=== PATIENT | female | born 1945 | race Hispanic/Latino ===

== ENCOUNTER → 2018-05-05 | Outpatient (CLI) | payer MEDICARE | END | disposition home or self-care (01) | LOC: RAH 09:46 | DX: Z12.31 Encounter for screening mammogram for malignant neoplasm of breast (principal) | CPT/HCPCS: 77067 ==

== ENCOUNTER → 2021-06-30 | Outpatient (CLI) | payer MEDICARE | END | disposition home or self-care (01) | LOC: OIH 15:27 | PROVIDERS: ATTEND Internal Medicine | DX: I36.1 Nonrheumatic tricuspid (valve) insufficiency (principal); I11.9 Hypertensive heart disease without heart failure; E66.9 Obesity, unspecified; E78.5 Hyperlipidemia, unspecified | CPT/HCPCS: 93306; 93356 ==

== ENCOUNTER → 2024-01-28 | Outpatient (CLI) | payer OTHER, MEDICARE | END | disposition home or self-care (01) | LOC: SHCH 09:00 | PROVIDERS: ATTEND Internal Medicine | DX: I34.0 Nonrheumatic mitral (valve) insufficiency (principal); I34.81 Nonrheumatic mitral (valve) annulus calcification | CPT/HCPCS: 93306 ==

== ENCOUNTER → 2025-06-28 | Outpatient (CLI) | payer MEDICARE ==
[2025-06-28] MEDS: REGADENOSON 0.4 MG/5 ML PF SYG IVP ONE (08:43)
== END | disposition home or self-care (01) ==
LOC: RAH 07:05
PROVIDERS: ATTEND Internal Medicine
DX: I25.10 Atherosclerotic heart disease of native coronary artery without angina pectoris (principal)
CPT/HCPCS: 78452; 93017; J2785; A9500 ×2

== ENCOUNTER 2025-07-14 12:41 | Emergency (ER) | payer MEDICARE, MEDICAID ==
[~2025-07-14] VITALS: Ht 152.4 cm; Wt 95.7 kg
--- NOTE | 2025-07-14 13:09 | ERN ---
ED Note History of Present Illness Stated Complaint: SOB X2 MONTHS. REFERRED BY PCP. [facility] Chief Complaint: Shortness of Breath Time Seen by MD: 12:48 Dictation: Patient is a 79-year-old female with a past medical history for diabetes, hypertension, kidney disease, CAD who presented to the ER complaining of shortness breath x2 months. 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 Beto Allergies: Coded Allergies: No Known Drug Allergies (Verified Allergy, Unknown, 02/17/18) Home Meds Active Scripts Furosemide (Furosemide) 40 Mg Tablet, 1 TAB PO DAILY for 30 Days, #30 TAB 0 R efills Prov:ROGE WHITLEY MD 07/14/25 Past Medical History Past Medical History: Asthma, CHF, Diabetes-Type II, Hypertension, Renal Disese Additional Past Medical Hx: PVD, Surgical History: Cholecystectomy Review of System Dictation NEGATIVE EXCEPT PER HPI Constitutional: Negative for fever,chills, and weight loss Eyes: Negative for injury, pain,redness, and discharge ENT: Negative for injury,pain or swelling Cardiovascular: denies chest pain, palpitations, and edema Respiratory: Shortness of breath Abdomen/GI: Negative for abdominal pain, nausea, vomiting, diarrhea, and constipation Back: Negative for injury and pain : Negative for injury, bleeding and discharge MS/Extremity: Negative for injury and deformity Skin: Negative for rash, and discoloration Neuro: Negative for headache, weakness, numbness, tingling, and seizure Psych: Negative for suicide ideation, homicidal ideation, and hallucinations Initial Vital Sign VS Vital Signs Date Time Temp Pulse Resp B/P (MAP) Pulse Ox O2 Delivery O2 Flow Rate FiO2 07/14/25 12:43 97.0 84 16 134/61 97 0 07/14/25 16:45 Room Air* 21 Physical Exam Dictation General: awake, alert, NAD Head/Face: Normocephalic, atraumatic Eyes: PERRL, EOMI, vision at baseline ENT: oral cavity clear, TMs clear, no signs of infection Neck: Trachea midline, supple, no nuchal rigidity Cardiovascular: RRR, normal S1/S2, No MRGs, no JVD Respiratory: CTAB, no respiratory distress, No rales or wheezes Abdomen: Soft , no tender Skin: Warm, dry, normal turgor, no rash MS/Extremity: Pulses equal, no cyanosis, neurovascular intact, FROM bilateral lower extremity edema. Neuro: COAx4, GCS 15, strength 5/5, CN 2-12 intact, normal cerebellar exam, normal gait, Psych: Normal behavior, mood, and affect normal Results (Laboratory/Radiology) Laboratory/Radiology Laboratory Tests Test 07/14/25 13:12 White Blood Count 4.9 K/uL (4.8-10.8) Red Blood Count 2.98 MIL/uL (4.00-5.50) L Hemoglobin 9.3 g/dL (12.0-16.0) L Hematocrit 30.5 % (36-48) L Mean Corpuscular Volume 102.3 fL (79-99) H Mean Corpuscular Hemoglobin 31.2 pg (27.0-33.0) Mean Corpuscular Hemoglobin Concent 30.5 g/dL (32.0-36.0) L Red Cell Distribution Width 14.1 % (11.0-15.5) Platelet Count 205 K/uL (130-400) Mean Platelet Volume 10.0 fL (7.5-10.5) Nucleated Red Blood Cells 0.0 % (0.0-0.19) Red Blood Cell Morphology See comments Sodium Level 141 mmol/L (136-145) Potassium Level 4.6 mmol/L (3.5-5.1) Chloride Level 103 mmol/L (101-111) Carbon Dioxide Level 31 mmol/L (21-32) Blood Urea Nitrogen 30 mg/dL (7-18) H Creatinine 2.5 mg/dL (0.5-1.0) H Glomerular Filtration Rate Calc 19 mL/min (>90) Random Glucose 155 mg/dL (70-105) H Total Calcium 10.3 mg/dL (8.5-10.1) H B-Type Natriuretic Peptide 1010 pg/mL (0-100) H EKG Comment: Atrial fibrillation heart rate 80, QT 399 Negative for STEMI ED Course ED Course Orders Procedure Category Date Status Time Chest 1vw RAD 07/14/25 Resulted 12:50 B-Type Natriuretic LAB 07/14/25 Complete Peptide 13:04 Cbc Without LAB 07/14/25 Complete Differential 13:04 Basic Metabolic Panel LAB 07/14/25 Complete 13:04 12 Lead Ekg Tracing- EKG 07/14/25 Resulted Technical 13:04 Furosemide 40mg Vial PHA 07/14/25 Complete (Lasix 40mg Vial) 14:30 Current Medications Medications (Trade) Dose Ordered Sig/Mike Route PRN Reason Start Time Stop Time Status Last Admin Dose Admin Furosemide (LASix 40MG VIAL) 40 mg ONCE ONCE IV 07/14/25 14:30 07/14/25 14:31 DC 07/14/25 14:57 Vital Signs Date Time Temp Pulse Resp B/P (MAP) Pulse Ox O2 Delivery O2 Flow Rate FiO2 07/14/25 16:45 97.9 78 16 124/54 98 Room Air* 0 21 07/14/25 12:43 97.0 84 16 134/61 97 0 Medical Decision Making MDM 79-year-old female with a past medical history of kidney disease, CAD. Who presented with the shortness breath x 2 months CHF exacerbation Bilateral lower extremity edema Ordered laboratory workup, EKG, chest x-ray DX & DISP Disposition: Discharge Departure Impression: Primary Impression: CHF (congestive heart failure) Additional Impression: CKD (chronic kidney disease) Condition: Stable Scripts Furosemide (Furosemide) 40 Mg Tablet 1 TAB PO DAILY for 30 Days, #30 TAB 0 Refills Prov: ROGE WHITLEY MD 07/14/25 Additional Instructions: RETURN TO ER FOR ANY ACUTE OR WORSENING SYMPTOMS. FOLLOW-UP IN 1-2 DAYS WITH PRIMARY PROVIDER FOR RECHECK OF TODAY'S SYMPTOMS. Referrals: LUZMA EASTMAN (PCP) Time of Disposition: 16:19 ROGE WHITLEY MD Jul 14, 2025 13:09
--- NOTE | 2025-07-14 13:16 | EKG ---
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
[2025-07-14 13:24] LABS: NUCLEATED RED BLOOD CELLS 0.0 % (0.0-0.19); PLATELET COUNT (AUTO) 205 K/uL (130-400); RED BLOOD CELL COUNT(AUTO) 2.98 MIL/uL (4.00-5.50); RED CELL DISTRIBUTION WIDTH 14.1 % (11.0-15.5); WHITE BLOOD COUNT (AUTO) 4.9 K/uL (4.8-10.8)
[2025-07-14 13:30] LABS: CREATININE 2.5 mg/dL (0.5-1.0); GLOMERULAR FILTR. RATE CALC 19.0 mL/min (>90); GLUCOSE,RANDOM 155.0 mg/dL (70-105); SODIUM SERUM 141.0 mmol/L (136-145); UREA NITROGEN, BLOOD 30.0 mg/dL (7-18)
--- NOTE | 2025-07-14 14:35 | HMCIMG ---
EXAM: CR Chest, 1 View. CLINICAL HISTORY: sOB, r/o pneumonia COMPARISON: None provided. FINDINGS: LUNGS: There is no mass, infiltrate, or acute pulmonary abnormality. PLEURAL SPACES: No evidence of pleural effusion or pneumothorax. MEDIASTINUM: The cardiomediastinal silhouette is within normal limits. BONES: No aggressive appearing osseous lesion seen. IMPRESSION: No acute cardiopulmonary pathology is evident. /[place]
[2025-07-14] MEDS ORDERED: FURO40TA5 PO (16:18)
[2025-07-14 16:45] VITALS: BP 124/54; PULSE 78; RESP 16; TEMP 97.8; O2SAT 98
== END 2025-07-14 17:13 | disposition home or self-care (01) ==
LOC: EDH 12:41
DX: I13.0 Hypertensive heart and chronic kidney disease with heart failure and stage 1 through stage 4 chronic kidney disease, or unspecified chronic kidney disease (principal); E11.22 Type 2 diabetes mellitus with diabetic chronic kidney disease; I50.9 Heart failure, unspecified; N18.9 Chronic kidney disease, unspecified; E11.51 Type 2 diabetes mellitus with diabetic peripheral angiopathy without gangrene; J45.909 Unspecified asthma, uncomplicated; I25.2 Old myocardial infarction; I25.10 Atherosclerotic heart disease of native coronary artery without angina pectoris; Z79.899 Other long term (current) drug therapy; Z90.49 Acquired absence of other specified parts of digestive tract
CPT/HCPCS: 99285; 96374; 71045; 80048; 83880; 85027; 36415; 93005; J1938